=== PATIENT | female | born 1955 | race Caucasian/White ===

== ENCOUNTER 2021-03-05 13:13 | Day surgery (SDC) | payer MEDICARE, OTHER ==
[~2021-03-05] VITALS: Ht 157.5 cm; Wt 81.8 kg
[2021-03-05] MEDS ORDERED: LOSARTAN-HCTZ1 EAC1 PO (13:45)
[2021-03-05] MEDS ORDERED: SYNTHROID137 MCG PO (13:45)
[2021-03-05] MEDS ORDERED: LIPITOR10 MG PO (13:46)
[2021-03-05] MEDS ORDERED: PRAMIPEXOLE0.125 MG PO (13:46)
[2021-03-05] MEDS ORDERED: ADVIL200 MG PO (13:47)
[2021-03-05] MEDS ORDERED: L-LYSINE500 M1 PO (13:47)
[2021-03-05] MEDS ORDERED: TYLENOL EXTRA500 MG PO (13:47)
[2021-03-05] MEDS ORDERED: MULTI VITAMIN1 EACH PO (13:47)
--- NOTE | 2021-03-05 14:54 | NUR ---
03/05/21 5148 Story,Leigh 1456 PT CAME TO PACU AWAKE AND TALKATIVE. OXYGEN D/C'D RESPIRATIONS EVEN AND UNLABORED.
--- NOTE | 2021-03-06 15:07 | OR ---
[facility] [address] [place], [place] [address] Signed DATE OF OPERATION: 03/05/2021 SURGEON: Annamaria Connell MD PREOPERATIVE DIAGNOSIS: Positive FIT test (occult fecal blood test). POSTOPERATIVE DIAGNOSES: 1. Sigmoid diverticulosis. 2. Small polyps x4. PROCEDURE: Total colonoscopy to cecum with cold morcellation polypectomy x4. ANESTHESIA: Intravenous sedation, fentanyl 100 mcg and Versed 5 mg. INDICATION: This 65-year-old white woman is a patient of EDDIE Mercedes from [place], [place]. The patient has had no overt symptoms of bleeding, diarrhea or constipation, but did undergo FIT testing where she was found to have a positive test. Her last colonoscopy was possibly 15 years ago she thinks. She has no family history of colon cancer. Her brother may have had cancer of the prostate. She is admitted at this time to undergo colonoscopy. She understands the risks of bleeding, infection, and perforation. FINDINGS: The prep was excellent. Complete colonoscopy was undertaken to the cecum without question. There were diverticula of the sigmoid and left colon. There was a small probably adenomatous polyp of the sigmoid, which was excised and three other small likely hyperplastic polyps of the rectosigmoid all excised as well. There were no findings of cancer per se. No sign of blood proper or colitis. DESCRIPTION OF PROCEDURE: The patient was brought to the endoscopy suite and placed in lateral decubitus position, given intravenous sedation to the point of slurred speech and nystagmus. Digital rectal examination was normal. An Olympus video colonoscope was passed in the rectum and manipulated throughout the colon noting numerous diverticula of the sigmoid and left colon. The scope was Electronically Signed By: ANNAMARIA CONNELL MD 03/06/21 1507 PATIENT NAME: KIEL CALDERON OPERATIVE REPORT DATE OF : 55 REPORT #: [id number] PHYSICIAN: ANNAMARIA CONNELL MD PCP: ANA KELLER PA-C REPORT IS CONFIDENTIAL AND NOT TO BE RELEASED WITHOUT AUTHORIZATION [facility] [address], [place] [address] Signed ultimately advanced to the cecum. The ileocecal valve and appendiceal orifice were normal. The scope was withdrawn from that point. Examination throughout showed no sign of abnormality until the left colon where diverticula were once again noted. Upon withdrawal, the sigmoid was a small relatively flat adenomatous-appearing polyp. This was excised with cold morcellation technique. The scope was further withdrawn and in a short distance from there were three small hyperplastic-appearing polyps, all were excised with cold morcellation technique. Further withdrawal of scope allowed for retroflexed view of the rectum, which was normal. Scope was removed. The patient was taken to the recovery room in good condition. CONCLUDING DIAGNOSIS: Polyps x4. No evidence of colitis or obvious bleeding lesion of colon or rectum. PLAN: Recommend repeat colonoscopy in 5 years, sooner if symptoms should occur. She will return to the ongoing care of kiesha Mercedes. MD JED Leach/BOONE /[id number] cc: EDDIE Mercedes Copies: ~ Electronically Signed By: ANNAMARIA CONNELL MD 03/06/21 1507 PATIENT NAME: KIEL CALDERON OPERATIVE REPORT DATE OF : 55 REPORT #: [id number] PHYSICIAN: ANNAMARIA CONNELL MD PCP: ANA KELLER PA-C REPORT IS CONFIDENTIAL AND NOT TO BE RELEASED WITHOUT AUTHORIZATION
--- NOTE | 2021-03-06 15:20 | PATH ---
[facility] [address] [facility] [place], [place] [address] Signed SPECIMEN(S): A SIGMOID POLYP SPECIMEN(S): B SIGMOID POLYP SPECIMEN SOURCE: A. SIGMOID POLYP B. SIGMOID POLYP CLINICAL HISTORY: Colonoscopy. Positive FIT test. Post: Diverticula, polyps (sigmoid x 4). MICROSCOPIC DESCRIPTION: Histologic sections of all submitted blocks are examined by light microscopy. These findings, together with the gross examination, support the pathologic diagnosis. FINAL PATHOLOGIC DIAGNOSIS: A. Colon, sigmoid, polyp, polypectomy: - Fragments of hyperplastic polyp. - Negative for dysplasia or malignancy. B. Colon, sigmoid, polyp, polypectomy: - Hyperplastic polyp. - Negative for dysplasia or malignancy. NAL:cml:C2NR GROSS DESCRIPTION: Two specimens are received in two containers labeled with "CC." A. The specimen, labeled "CC, 1," and designated on the requisition "sigmoid colon polypectomy," is received in formalin and consists of multiple fragments of pink-murrieta tissue (0.7 x 0.7 x 0.2 cm in aggregate). The specimen is submitted entirely in cassette (A1). B. The specimen, labeled "CC, 2," and designated on the requisition "sigmoid colon polypectomy," is received in formalin and consists of multiple fragments of pink-murrieta tissue (0.5 x 0.4 x 0.2 cm in aggregate). The specimen is submitted entirely in cassette (B1). AC (under the direct supervision of a pathologist) The Gross Description was prepared using a voice recognition system. The report was reviewed for accuracy; however, sound-alike word errors, addition and/or deletions may occur. If there is any question about this report, please contact Client Services. PERFORMING LABORATORY: The technical component was performed by [facility], [address] [place], [place] [address]jono [facility], PATIENT NAME: KIEL CALDERON PATHOLOGY DATE OF : 55 REPORT #: [id number] PHYSICIAN: ALYCIA WATERS PCP: ANA KELLER PA-C REPORT IS CONFIDENTIAL AND NOT TO BE RELEASED WITHOUT AUTHORIZATION [facility] [address] [place], [place] [address] [place] [address] (Assistant To The Vice President: Gela Bowling MD; CLIA# [id number]). Professional interpretation was performed by [facility], [address] [address] (CLIA# [id number]). Diagnostician: Arminda Borjas MD Pathologist Electronically Signed 03/06/2021 Copies: ~ PATIENT NAME: KIEL CALDERON PATHOLOGY DATE OF : 55 REPORT #: [id number] PHYSICIAN: ALYCIA WATERS PCP: ANA KELLER PA-C REPORT IS CONFIDENTIAL AND NOT TO BE RELEASED WITHOUT AUTHORIZATION
== END 2021-03-05 15:24 | disposition home or self-care (01) ==
LOC: OPS 13:13 → DS 13:13 → OPS 14:00
PROVIDERS: ATTEND Surgery
PROC: 0DBE8ZZ Excision of Large Intestine, Via Natural or Artificial Opening Endoscopic (ICD-10-PCS; principal; 2021-03-05 14:00)
DX: K63.5 Polyp of colon (principal); K57.30 Diverticulosis of large intestine without perforation or abscess without bleeding; I10 Essential (primary) hypertension; E03.9 Hypothyroidism, unspecified; E78.5 Hyperlipidemia, unspecified; Z88.5 Allergy status to narcotic agent; Z88.0 Allergy status to penicillin; Z88.6 Allergy status to analgesic agent; Z88.1 Allergy status to other antibiotic agents; Z90.49 Acquired absence of other specified parts of digestive tract
CPT/HCPCS: 99153; G0500; J2250; J3010; J7121